=== PATIENT | female | born 1985 ===

== ENCOUNTER 2024-08-05 06:33 | Day surgery (SDC) | payer OTHER ==
[~2024-08-05 06:33] MED LIST: Midazolam 1 MG/ML 2 ML SDV ONE; Sodium Chloride 0.9% 10 ML Syringe FLUSH PRN; Sodium Chloride 0.9% 10 ML Syringe FLUSH SCH; fentaNYL 100 MCG/2 ML SDV ONE; propofoL 500 MG/50 ML 50 ML ONE
[2024-08-05] MEDS ORDERED: HYDROmorphone 0.5 MG/0.5 ML Syringe IVPUSH PRN (06:41)
[2024-08-05] MEDS ORDERED: Ondansetron 4 MG/2 ML SDV IVPUSH PRN (06:41)
[2024-08-05] MEDS ORDERED: fentaNYL 100 MCG/2 ML SDV IVPUSH PRN (06:41)
[2024-08-05] MEDS ORDERED: Glycopyrrolate 0.2 MG/ML 2 ML SDV ONE (06:45)
[2024-08-05] MEDS: Lactated Ringers 1,000 ML IV SCH (06:50)
[2024-08-05] MEDS ORDERED: Ketamine 200 MG/20 ML MDV ONE (06:56)
[2024-08-05 07:03] LABS: BASOPHILS PERCENT AUTO 0.7 % (0.0-1.0); EOSINOPHILS PERCENT AUTO 0.2 % (0.0-6.0); HEMOGLOBIN 12.1 gm/dl (12.0-16.0); IMMATURE GRAN ABSOLUTE AUTO 0.01 K/mm3 (0.00-0.05); IMMATURE GRAN PERCENT AUTO 0.2 % (0.0-0.4); LYMPHOCYTES ABSOLUTE AUTO 1.7 K/mm3 (1.0-4.8); LYMPHOCYTES PERCENT AUTO 43.4 % (24.0-44.0); MEAN CORPUSCULAR HEMOGLOBIN 32.2 pg (28.0-32.0); MEAN CORPUSCULAR HGB CONC 34.6 g/dl (32.0-36.0); MEAN CORPUSCULAR VOLUME 93.1 fl (83.0-99.0); MEAN PLATELET VOLUME 8.7 fl (9.4-12.3); MONOCYTES ABSOLUTE AUTO 0.3 K/mm3 (0.0-0.8); MONOCYTES PERCENT AUTO 7.5 % (0.0-8.0); NEUTROPHILS ABSOLUTE AUTO 1.9 K/mm3 (1.8-7.7); PLATELET COUNT,PLT 250 K/mm3 (150-400); RED BLOOD CELL COUNT 3.76 M/mm3 (4.10-5.30); WHITE BLOOD CELL COUNT,WBC 4.01 K/mm3 (3.9-11.3)
[2024-08-05] MEDS ORDERED: fentaNYL 100 MCG/2 ML SDV ONE (07:06)
[2024-08-05] MEDS: Albuterol/Ipratropium 3.0-0.5 MG/3 ML Neb Soln NEB ONE (07:06)
[2024-08-05] MEDS ORDERED: Esmolol 100 MG/10 ML SDV ONE (07:08)
[2024-08-05] MEDS: Doxycycline Monohydrate 100 MG Cap PO ONE (07:09)
[2024-08-05] MEDS ORDERED: Lactated Ringers 1,000 ML ONE (07:13)
[2024-08-05] MEDS ORDERED: Ketorolac 30 MG/ML SDV ONE (07:18)
[2024-08-05] MEDS ORDERED: Tranexamic Acid 1,000 MG/10 ML Vial ONE (07:24)
[2024-08-05 07:35] LABS: ANION GAP 13.5 (5-15); CALCIUM 9.2 mg/dL (8.5-10.1); CREATININE 0.5 mg/dL (0.55-1.02); EST CRCL DRUG DOSING (CG) 124.96 mL/min; TSH 2.693 uIU/mL (0.358-3.74)
[2024-08-05 07:39] LABS: POTASSIUM,K 3.5 mEq/L (3.5-5.1)
[2024-08-05] MEDS: Lidocaine 1% 20 ML MDV ONE (07:54)
[2024-08-05] MEDS ORDERED: Methylergonovine 0.2 MG/1 ML Amp ONE (08:11)
[2024-08-05] MEDS ORDERED: Acetaminophen/HYDROcodone 325-5 MG Tab PO PRN (08:53)
== END 2024-08-05 11:56 | disposition home or self-care (01) ==
LOC: JD.SDS 06:33
PROVIDERS: ATTEND Obstetrics & Gynecology
DX: O01.1 Incomplete and partial hydatidiform mole (principal); F17.290 Nicotine dependence, other tobacco product, uncomplicated
CPT/HCPCS: 36415; 59870; 80048; 84443; 84702; 85025; 86850; 86900; 86901; A9270; J1596; J1805; J1885; J2210; J2250; J2704; J3010; J3490; J7120; J7620; 01965